=== PATIENT | male | born 1970 | race Caucasian/White ===

== ENCOUNTER 2018-10-13 12:12 | Inpatient (IN) | payer BC, MEDICAID ==
[~2018-10-13] VITALS: Ht 175.3 cm; Wt 113.4 kg
[2018-10-13] MEDS: DEXT 5%/0.45% NACL 1000ML 1,000 ML IV SCH (09:00)
[2018-10-13] MEDS ORDERED: ACETAMINOPHEN 325MG TABLET PO STA (13:21)
[2018-10-13] MEDS ORDERED: KETOROLAC 30MG/ML VIAL IV STA (13:21)
[2018-10-13] MEDS ORDERED: SODIUM CHLORIDE 0.9% 1000ML BAG (SEPSIS BOLUS) IV ONE (13:30)
[2018-10-13 14:11] LABS: HEMATOCRIT. 40.2 % (42.0-52.0); HEMOGLOBIN. 12.7 g/dL (14.0-18.0); MEAN CORPUSCULAR HEMOGLOBIN 25.8 pg (28.0-32.0); MEAN CORPUSCULAR VOLUME 81.4 fL (80.0-94.0); MEAN PLATELET VOLUME 7.4 fl (7.4-10.4); PLATELET 343 x1000/uL (130-400); RED BLOOD CELL COUNT 4.94 mill/uL (4.7-6.1); RED CELL DISTRIBUTION WIDTH 15.3 % (11.6-14.6)
[2018-10-13 14:11] LABS: CLARITY URINE CLEAR (CLEAR); COLOR URINE YELLOW (YELLOW); KETONES URINE 1+ (NEGATIVE); LEUKOCYTE ESTERASE URINE NEGATIVE (NEGATIVE); NITRITE URINE NEGATIVE (NEGATIVE); OCCULT BLOOD URINE TRACE (NEGATIVE); PROTEIN URINE NEGATIVE (NEGATIVE); UROBILINOGEN URINE 0.2 E.U./dL (0.2-1.0)
[2018-10-13 14:14] LABS: CHLORIDE 104 mEq/L (98-107)
[2018-10-13 14:37] LABS: PLATELET ESTIMATE NORMAL
[2018-10-13] MEDS ORDERED: CEFEPIME 1,000 MG in DEXTROSE 5% WATER 50 ML IV STA (14:55)
[2018-10-13] MEDS ORDERED: VANCOMYCIN 1 G PREMIX 200 ML IV STA (14:55)
[2018-10-13 16:18] LABS: INR 1.1; PROTHROMBIN TIME 10.7 sec (9.1-11.1)
[2018-10-13] MEDS ORDERED: ONDANSETRON HCL 4MG/2ML INJ IV PRN (16:45)
[2018-10-13] MEDS ORDERED: IPRATROPIUM/ALBUTEROL 0.5-3(2.5)MG/3ML NEB INH PRN (16:45)
[2018-10-13] MEDS ORDERED: ENOXAPARIN 40MG/0.4ML SYR SUBCUT SCH (16:45)
[2018-10-13] MEDS ORDERED: ACETAMINOPHEN 325MG TABLET PO PRN (16:45)
[2018-10-14 05:46] LABS: BASOPHILS % 0.2 % (0.0-2.0); EOSINOPHILS % 0.1 % (0.0-5.0); HEMATOCRIT. 35.3 % (42.0-52.0); HEMOGLOBIN. 11.2 g/dL (14.0-18.0); LYMPHOCYTES % 9.6 % (20.0-50.0); MEAN CORPUSCULAR HEMOGLOBIN 25.9 pg (28.0-32.0); MEAN CORPUSCULAR VOLUME 81.7 fL (80.0-94.0); MEAN PLATELET VOLUME 7.3 fl (7.4-10.4); MONOCYTES % 6.3 % (2.0-8.0); NEUTROPHILS % 83.8 % (40.0-76.0); PLATELET 272 x1000/uL (130-400); RED BLOOD CELL COUNT 4.32 mill/uL (4.7-6.1); RED CELL DISTRIBUTION WIDTH 15.6 % (11.6-14.6)
[2018-10-14 05:53] LABS: CHLORIDE 105 mEq/L (98-107)
[2018-10-14 06:04] LABS: LDL CHOLESTEROL 73 mg/dL (5-100)
[2018-10-14 06:05] LABS: HDL CHOLESTEROL 33 mg/dL (40-59)
[2018-10-14 08:11] LABS: *BARBITURATES SCREEN URINE NEGATIVE (NEGATIVE); CANNABINOID URINE SCREEN NEGATIVE (NEGATIVE); PHENCYCLIDINE URINE SCREEN NEGATIVE (NEGATIVE)
[2018-10-14 08:12] LABS: *AMPHETAMINES SCREEN URINE NEGATIVE (NEGATIVE); *BENZODIAZEPINES SCREEN URINE NEGATIVE (NEGATIVE); *COCAINE SCREEN URINE NEGATIVE (NEGATIVE); METHADONE URINE SCREEN NEGATIVE (NEGATIVE); OPIATES URINE SCREEN NEGATIVE (NEGATIVE)
[2018-10-14] MEDS ORDERED: METRONIDAZOLE 500 MG PREMIX 100 ML IV ONE (08:15)
[2018-10-14] MEDS ORDERED: CEFEPIME 1,000 MG in DEXTROSE 5% WATER 50 ML IV SCH (08:15)
[2018-10-14 08:55] VITALS: BP 172/111
[2018-10-14 09:26] VITALS: BP 165/101
[2018-10-14 09:28] VITALS: BP 165/101
[2018-10-14] MEDS ORDERED: VANCOMYCIN 2,000 MG in DEXT 5% WATER 500 ML IV SCH (11:00)
[2018-10-14] MEDS: CEFEPIME 1,000 MG in DEXTROSE 5% WATER 50 ML IV SCH ×2 (11:34→20:30)
[2018-10-14] MEDS: MORPHINE SULFATE 4 MG/ML CPJ (NOT FOR IM USE) IV PRN ×2 (11:37→20:25)
[2018-10-14 12:00] VITALS: BP 162/110
[2018-10-14] MEDS: METRONIDAZOLE 500 MG PREMIX 100 ML IV SCH ×2 (14:00→22:06)
[2018-10-14 16:00] VITALS: BP 163/98
[2018-10-14] MEDS ORDERED: METOPROLOL TARTRATE 25MG TABLET PO SCH (16:45)
[2018-10-14] MEDS ORDERED: DOCUSATE SODIUM 100MG CAPSULE PO PRN (16:45)
[2018-10-14] MEDS ORDERED: HYDROCODONE/ACETAMINOPHEN 5/325MG TABLET PO PRN (16:45)
[2018-10-14] MEDS ORDERED: CLONIDINE 0.1MG TABLET PO PRN (16:45)
[2018-10-14] MEDS ORDERED: DIPHENHYDRAMINE 50MG/ML VIAL IV PRN (16:45)
[2018-10-14] MEDS: ENOXAPARIN 30MG/0.3ML SYR SUBCUT SCH (18:17)
[2018-10-14 20:00] VITALS: BP 153/106
[2018-10-14] MEDS: METOPROLOL TARTRATE 25MG TABLET PO SCH (20:27)
[2018-10-14] MEDS: VANCOMYCIN 1500MG in DEXTROSE 5% WATER 250ML IV SCH (22:07)
[2018-10-15] VITALS: BP 150/103
[2018-10-15 04:00] VITALS: BP 145/99
[2018-10-15] MEDS: METRONIDAZOLE 500 MG PREMIX 100 ML IV SCH ×3 (05:57→22:37)
[2018-10-15] MEDS: DEXT 5%/0.45% NACL 1000ML 1,000 ML IV SCH ×2 (05:57→21:00)
[2018-10-15 08:00] VITALS: BP 148/95
[2018-10-15 08:02] LABS: CHLORIDE 104 mEq/L (98-107)
[2018-10-15 08:29] LABS: HEMATOCRIT. 35.7 % (42.0-52.0); HEMOGLOBIN. 11.3 g/dL (14.0-18.0); MEAN CORPUSCULAR HEMOGLOBIN 25.6 pg (28.0-32.0); PLATELET 354 x1000/uL (130-400); RED CELL DISTRIBUTION WIDTH 15.4 % (11.6-14.6)
[2018-10-15] MEDS: METOPROLOL TARTRATE 25MG TABLET PO SCH ×2 (09:36→20:41)
[2018-10-15] MEDS: CEFEPIME 1,000 MG in DEXTROSE 5% WATER 50 ML IV SCH ×2 (09:37→21:31)
[2018-10-15] MEDS: ENOXAPARIN 30MG/0.3ML SYR SUBCUT SCH ×2 (09:38→21:00)
[2018-10-15] MEDS: VANCOMYCIN 1500MG in DEXTROSE 5% WATER 250ML IV SCH (10:44)
[2018-10-15 12:00] VITALS: BP 141/95
[2018-10-15 14:19] LABS: PLATELET ESTIMATE NORMAL
[2018-10-15 16:00] VITALS: BP 151/92
[2018-10-15] MEDS ORDERED: SORBITOL 70% SOLN 30ML PO NR ×2 (16:00→20:00)
[2018-10-15 20:00] VITALS: BP 136/99
[2018-10-15] MEDS: VANCOMYCIN 1250MG in DEXTROSE 5% WATER 250ML IV SCH (20:41)
[2018-10-16 00:05] VITALS: BP 150/95
[2018-10-16 04:00] VITALS: BP 131/82
[2018-10-16] MEDS: VANCOMYCIN 1250MG in DEXTROSE 5% WATER 250ML IV SCH ×2 (04:16→11:57)
[2018-10-16] MEDS: METRONIDAZOLE 500 MG PREMIX 100 ML IV SCH ×3 (05:38→22:33)
[2018-10-16] MEDS: DEXT 5%/0.45% NACL 1000ML 1,000 ML IV SCH ×2 (05:38→17:45)
[2018-10-16 07:36] LABS: CHLORIDE 106 mEq/L (98-107)
[2018-10-16 07:38] LABS: HEMATOCRIT. 37.6 % (42.0-52.0); HEMOGLOBIN. 11.9 g/dL (14.0-18.0); MEAN CORPUSCULAR HEMOGLOBIN 25.7 pg (28.0-32.0); MEAN CORPUSCULAR VOLUME 80.8 fL (80.0-94.0); MEAN PLATELET VOLUME 7.3 fl (7.4-10.4); PLATELET 404 x1000/uL (130-400); RED BLOOD CELL COUNT 4.65 mill/uL (4.7-6.1); RED CELL DISTRIBUTION WIDTH 15.2 % (11.6-14.6)
[2018-10-16 08:00] VITALS: BP 154/60
[2018-10-16] MEDS: METOPROLOL TARTRATE 25MG TABLET PO SCH ×2 (09:52→22:33)
[2018-10-16] MEDS: ENOXAPARIN 30MG/0.3ML SYR SUBCUT SCH ×2 (09:52→22:34)
[2018-10-16] MEDS: CEFEPIME 1,000 MG in DEXTROSE 5% WATER 50 ML IV SCH ×2 (09:52→22:33)
[2018-10-16 12:00] VITALS: BP 137/86
[2018-10-16 12:04] LABS: PLATELET ESTIMATE SLIGHTLY INCREASED
[2018-10-16] MEDS ORDERED: PROPOFOL 200MG/20ML VIAL IV ONE ×3 (14:02→14:33)
[2018-10-16] MEDS ORDERED: LIDOCAINE HCL 1% 20ML VIAL (Pyxis) INJ ONE (14:05)
[2018-10-16] MEDS ORDERED: MIDAZOLAM HCL 2 MG/2 ML VIAL ONE (14:06)
[2018-10-16] MEDS ORDERED: SIMETHICONE 40 MG/0.6 ML 30ML ONE (14:09)
[2018-10-16] MEDS ORDERED: ONDANSETRON HCL 4MG/2ML INJ IV PRN ×2 (15:00→16:45)
[2018-10-16] MEDS ORDERED: HYDROMORPHONE HCL/PF 2MG/ML CPJ IV PRN (16:45)
[2018-10-16] MEDS ORDERED: VANCOMYCIN 1250MG in DEXTROSE 5% WATER 250ML IV SCH (22:00)
[2018-10-17] MEDS: DEXT 5%/0.45% NACL 1000ML 1,000 ML IV SCH ×2 (03:00→14:10)
[2018-10-17] MEDS: METRONIDAZOLE 500 MG PREMIX 100 ML IV SCH ×2 (06:52→14:10)
[2018-10-17 08:00] VITALS: BP 125/83
[2018-10-17 08:49] LABS: CHLORIDE 106 mEq/L (98-107)
[2018-10-17] MEDS: CEFEPIME 1,000 MG in DEXTROSE 5% WATER 50 ML IV SCH (09:25)
[2018-10-17] MEDS: METOPROLOL TARTRATE 25MG TABLET PO SCH (09:27)
[2018-10-17] MEDS: ENOXAPARIN 30MG/0.3ML SYR SUBCUT SCH (09:28)
[2018-10-17 11:30] LABS: HEMATOCRIT. 37.1 % (42.0-52.0); HEMOGLOBIN. 11.8 g/dL (14.0-18.0); MEAN CORPUSCULAR HEMOGLOBIN 25.9 pg (28.0-32.0); MEAN CORPUSCULAR VOLUME 81.1 fL (80.0-94.0); MEAN PLATELET VOLUME 7.2 fl (7.4-10.4); PLATELET 430 x1000/uL (130-400); RED BLOOD CELL COUNT 4.57 mill/uL (4.7-6.1); RED CELL DISTRIBUTION WIDTH 15.4 % (11.6-14.6)
[2018-10-17 12:00] VITALS: BP 131/89
[2018-10-17 12:52] LABS: PLATELET ESTIMATE INCREASED
[2018-10-17 15:29] VITALS: BP 18/131
[2018-10-18 04:13] LABS: OVA & PARASITE EXAM Final report (.)
== END 2018-10-17 16:45 | disposition home or self-care (01) | DRG 871 ==
LOC: ER 12:12 → 7WST 15:56 → EDBEDREQSVC 15:58 → EDBEDREQ 15:58 → ENRESERV 10-14 08:01
PROVIDERS: ADMIT Internal Medicine; ATTEND Internal Medicine
PROC: 0DBL8ZZ Excision of Transverse Colon, Via Natural or Artificial Opening Endoscopic (ICD-10-PCS; principal; 2018-10-16)
PROC: 0DBH8ZX Excision of Cecum, Via Natural or Artificial Opening Endoscopic, Diagnostic (ICD-10-PCS; 2018-10-16)
DX: A41.9 Sepsis, unspecified organism (principal); J18.9 Pneumonia, unspecified organism; C18.9 Malignant neoplasm of colon, unspecified; D68.59 Other primary thrombophilia; C18.0 Malignant neoplasm of cecum; C79.9 Secondary malignant neoplasm of unspecified site; J44.0 Chronic obstructive pulmonary disease with (acute) lower respiratory infection; Z68.41 Body mass index [BMI] 40.0-44.9, adult; D64.9 Anemia, unspecified; E78.5 Hyperlipidemia, unspecified; K52.9 Noninfective gastroenteritis and colitis, unspecified; I10 Essential (primary) hypertension; E66.9 Obesity, unspecified; F10.10 Alcohol abuse, uncomplicated; F17.210 Nicotine dependence, cigarettes, uncomplicated; K57.30 Diverticulosis of large intestine without perforation or abscess without bleeding; R73.9 Hyperglycemia, unspecified; Z72.89 Other problems related to lifestyle
CPT/HCPCS: 36415; 71045; 71250; 74176; 80048; 80061; 80202; 80305; 82378; 83036; 83605; 84145; 84439; 84443; 84484; 85007; 85027; 86304; 87015; 87045; 87177; 87209; 87427; 87449; 87804; 88305; 93005; 93306; 93970; 96365; 96375; 99291; J0692; J1650; J1885; J2250; J2270; J2704; J3370; J3490; J7030; J7060

== ENCOUNTER 2018-11-20 05:38 | Inpatient (IN) | payer BC ==
[~2018-11-20] VITALS: Ht 175.3 cm; Wt 113.4 kg
[2018-11-20] MEDS ORDERED: LACTATED RINGERS 1,000 ML IV SCH (06:00)
[2018-11-20 06:35] LABS: INR 1.1; PARTIAL THROMBOPLASTIN TIME 27.8 sec (23.4-31.0); PROTHROMBIN TIME 11.2 sec (9.6-11.0)
[2018-11-20] MEDS ORDERED: INDOCYANINE GREEN 25 MG VIAL IV ONE (06:40)
[2018-11-20] MEDS ORDERED: SKIN ADHESIVE 0.7 GM EA TOP ONE ×2 (06:40→10:27)
[2018-11-20] MEDS ORDERED: LEVOFLOXACIN 500MG PREMIX 100 ML IV ONE (06:40)
[2018-11-20] MEDS ORDERED: BUPIVACAINE HCL/PF 0.5% (5MG/ML) 10ML ONE (06:41)
[2018-11-20] MEDS ORDERED: METRONIDAZOLE 500 MG PREMIX 100 ML IV ONE (06:41)
[2018-11-20] MEDS ORDERED: BUPIVACAINE HCL 0.5% (5MG/ML) 50ML ONE ×2 (06:42→10:05)
[2018-11-20] MEDS ORDERED: ONDANSETRON HCL 4MG/2ML INJ IV PRN ×2 (07:15→10:45)
[2018-11-20] MEDS ORDERED: METO25TA6 PO (09:00)
[2018-11-20] MEDS ORDERED: SODIUM CHLORIDE 0.9% 1,000 ML IV ONE (10:39)
[2018-11-20] MEDS ORDERED: MORPHINE SULFATE 4 MG/ML CPJ (NOT FOR IM USE) IV PRN (10:45)
[2018-11-20] MEDS ORDERED: MEPERIDINE HCL/PF 25MG/ML CPJ IV PRN ×2 (10:45)
[2018-11-20] MEDS ORDERED: HYDROMORPHONE HCL/PF 2MG/ML CPJ IV PRN (10:45)
[2018-11-20 12:00] VITALS: BP 122/73
[2018-11-20 16:00] VITALS: BP 137/84
[2018-11-20] MEDS: DEXT 5%/0.45% NACL KCL 20MEQ/L 1,000 ML IV SCH (18:32)
[2018-11-20 20:34] VITALS: BP 132/90
[2018-11-21] VITALS (7 sets, daily range): BP systolic 132–169; BP diastolic 88–104
[2018-11-21] MEDS: DEXT 5%/0.45% NACL KCL 20MEQ/L 1,000 ML IV SCH ×2 (01:30→12:25)
[2018-11-21 06:13] LABS: BASOPHILS % 0.3 % (0.0-2.0); HEMATOCRIT. 32.3 % (42.0-52.0); HEMOGLOBIN. 10.5 g/dL (14.0-18.0); LYMPHOCYTES % 12.5 % (20.0-50.0); MEAN CORPUSCULAR VOLUME 80.2 fL (80.0-94.0); MEAN PLATELET VOLUME 7.5 fl (7.4-10.4); MONOCYTES % 9.7 % (2.0-8.0); NEUTROPHILS % 77.5 % (40.0-76.0); PLATELET 318 x1000/uL (130-400); RED BLOOD CELL COUNT 4.02 mill/uL (4.7-6.1); RED CELL DISTRIBUTION WIDTH 16.2 % (11.6-14.6)
[2018-11-21 06:43] LABS: CHLORIDE 108 mEq/L (98-107)
[2018-11-21] MEDS: MORPHINE SULFATE 4 MG/ML CPJ (NOT FOR IM USE) IV PRN (09:53)
[2018-11-21] MEDS: ACETAMINOPHEN 650MG SUPP PR PRN ×2 (10:05→22:46)
[2018-11-21] MEDS ORDERED: IPRATROPIUM/ALBUTEROL 0.5-3(2.5)MG/3ML NEB HHN PRN (14:00)
[2018-11-21] MEDS ORDERED: GUAIFENESIN 200MG/10ML SUGAR FREE UDC PO PRN (15:15)
[2018-11-21] MEDS: LEVOFLOXACIN 500MG PREMIX 100 ML IV SCH (17:09)
[2018-11-21] MEDS: FLUTICASONE PROPIONATE 50MCG/SPRAY BOTTLE BOTHNSTRLS SCH (20:24)
[2018-11-22] VITALS: BP 149/98
[2018-11-22 04:00] VITALS: BP 138/93
[2018-11-22 06:41] LABS: CHLORIDE 106 mEq/L (98-107)
[2018-11-22 06:56] LABS: HEMATOCRIT 34.8 % (42.0-52.0); HEMOGLOBIN 11.1 g/dL (14.0-18.0); MEAN CORPUSCULAR HEMOGLOBIN 25.6 pg (28.0-32.0); MEAN CORPUSCULAR VOLUME 80.2 fL (80.0-94.0); PLATELET 343 x1000/uL (130-400); RED BLOOD CELL COUNT 4.34 mill/uL (4.7-6.1); RED CELL DISTRIBUTION WIDTH 16.4 % (11.6-14.6)
[2018-11-22 08:00] VITALS: BP 125/82
[2018-11-22] MEDS: ACETAMINOPHEN 650MG SUPP PR PRN ×2 (08:05→19:40)
[2018-11-22] MEDS: FLUTICASONE PROPIONATE 50MCG/SPRAY BOTTLE BOTHNSTRLS SCH ×2 (08:07→20:33)
[2018-11-22 12:00] VITALS: BP 128/86
[2018-11-22 16:00] VITALS: BP 142/65
[2018-11-22] MEDS: LEVOFLOXACIN 500MG PREMIX 100 ML IV SCH (17:18)
[2018-11-22 20:00] VITALS: BP 130/87
[2018-11-22] MEDS: MORPHINE SULFATE 4 MG/ML CPJ (NOT FOR IM USE) IV PRN (22:41)
[2018-11-23] VITALS: BP 128/87
[2018-11-23 04:37] VITALS: BP 140/91
[2018-11-23 06:36] LABS: HEMATOCRIT 36.6 % (42.0-52.0); HEMOGLOBIN 11.9 g/dL (14.0-18.0); MEAN CORPUSCULAR HEMOGLOBIN 26.1 pg (28.0-32.0); PLATELET 392 x1000/uL (130-400); RED BLOOD CELL COUNT 4.58 mill/uL (4.7-6.1); RED CELL DISTRIBUTION WIDTH 16.6 % (11.6-14.6)
[2018-11-23 06:48] LABS: CHLORIDE 103 mEq/L (98-107)
[2018-11-23 08:00] VITALS: BP 135/79
[2018-11-23] MEDS: FLUTICASONE PROPIONATE 50MCG/SPRAY BOTTLE BOTHNSTRLS SCH ×2 (08:15→20:33)
[2018-11-23 12:00] VITALS: BP 135/78
[2018-11-23 16:00] VITALS: BP 132/84
[2018-11-23] MEDS: LEVOFLOXACIN 500MG PREMIX 100 ML IV SCH (16:52)
[2018-11-23 20:00] VITALS: BP 129/87
[2018-11-24] VITALS: BP 132/88
[2018-11-24] MEDS: MORPHINE SULFATE 4 MG/ML CPJ (NOT FOR IM USE) IV PRN (03:55)
[2018-11-24 04:00] VITALS: BP 116/81
[2018-11-24 06:49] LABS: HEMATOCRIT 33.9 % (42.0-52.0); HEMOGLOBIN 10.9 g/dL (14.0-18.0); MEAN CORPUSCULAR HEMOGLOBIN 25.8 pg (28.0-32.0); MEAN CORPUSCULAR VOLUME 79.9 fL (80.0-94.0); PLATELET 373 x1000/uL (130-400); RED BLOOD CELL COUNT 4.25 mill/uL (4.7-6.1)
[2018-11-24 07:24] LABS: CHLORIDE 105 mEq/L (98-107)
[2018-11-24 08:00] VITALS: BP 113/81
[2018-11-24] MEDS: FLUTICASONE PROPIONATE 50MCG/SPRAY BOTTLE BOTHNSTRLS SCH (09:22)
[2018-11-24 12:13] VITALS: BP 144/92
[2018-11-24 12:21] VITALS: BP 144/92
== END 2018-11-24 13:30 | disposition home or self-care (01) | DRG 330 ==
LOC: OR 05:38 → 6EST 05:39 → 6WST 11-21 04:47 → 5WST 11-21 19:53
PROVIDERS: ADMIT Surgery; ATTEND Surgery
PROC: 8E0W4CZ Robotic Assisted Procedure of Trunk Region, Percutaneous Endoscopic Approach (ICD-10-PCS; principal; 2018-11-20)
PROC: 0DTF4ZZ Resection of Right Large Intestine, Percutaneous Endoscopic Approach (ICD-10-PCS; 2018-11-20)
DX: C18.0 Malignant neoplasm of cecum (principal); C78.00 Secondary malignant neoplasm of unspecified lung; I47.1 Supraventricular tachycardia; K56.7 Ileus, unspecified; D72.829 Elevated white blood cell count, unspecified; I10 Essential (primary) hypertension; T14.8XXA Other injury of unspecified body region, initial encounter; E66.01 Morbid (severe) obesity due to excess calories; D64.9 Anemia, unspecified; K57.30 Diverticulosis of large intestine without perforation or abscess without bleeding; Z79.899 Other long term (current) drug therapy; W34.09XA Accidental discharge from other specified firearms, initial encounter; Y93.89 Activity, other specified; Y92.89 Other specified places as the place of occurrence of the external cause; Y99.8 Other external cause status; Z68.36 Body mass index [BMI] 36.0-36.9, adult; Z56.0 Unemployment, unspecified
CPT/HCPCS: 36415; 71045; 80048; 82962; 85027; 86850; 86900; 88309; 88329; 93005; J1170; J1956; J2270; J3490; Q9957

== ENCOUNTER → 2019-01-16 | Outpatient (CLI) | payer BC ==
[~2019-01-16] VITALS: Ht 175.3 cm; Wt 112.0 kg
[2019-01-16] VITALS (15 sets, daily range): BP systolic 153–209; BP diastolic 97–117
[~2019-01-16] MED LIST: CEFAZOLIN 1000MG PREMIX 50 ML IV ONE; FENTANYL CITRATE/PF 50MCG/ML 2ML VIAL IV ONE; FENTANYL CITRATE/PF 50MCG/ML 2ML VIAL ONE; LIDOCAINE HCL 1% 20ML VIAL (Pyxis) INJ ONE; LIDOCAINE HCL/EPINEPHRINE 1%-EPI 1:100,000 20 ML VIAL ONE; METO25TA6 PO; MIDAZOLAM HCL 2 MG/2 ML VIAL IV ONE; MIDAZOLAM HCL 2 MG/2 ML VIAL ONE; MIDAZOLAM HCL 5 MG/ML VIAL IV ONE; SODIUM BICARBONATE 4% (2.4MEQ) 5ML VIAL IV ONE
== END | disposition home or self-care (01) ==
LOC: RAD 08:45
PROVIDERS: ATTEND Internal Medicine Hematology & Oncology
DX: C18.2 Malignant neoplasm of ascending colon (principal)
CPT/HCPCS: 36561; 76937; 77001; C1751; J2250; J3010; J3490; J0690; J7050

== ENCOUNTER → 2020-07-14 | Outpatient (CLI) | payer BC ==
[~2020-07-14] MED LIST changes: +BARIUM SULFATE 450ML ORAL SUSP ONE; -CEFAZOLIN 1000MG PREMIX 50 ML IV ONE; -FENTANYL CITRATE/PF 50MCG/ML 2ML VIAL IV ONE; -FENTANYL CITRATE/PF 50MCG/ML 2ML VIAL ONE; +IOHEXOL-300 100 ML BOTTLE ONE; -LIDOCAINE HCL 1% 20ML VIAL (Pyxis) INJ ONE; -LIDOCAINE HCL/EPINEPHRINE 1%-EPI 1:100,000 20 ML VIAL ONE; -MIDAZOLAM HCL 2 MG/2 ML VIAL IV ONE; -MIDAZOLAM HCL 2 MG/2 ML VIAL ONE; -MIDAZOLAM HCL 5 MG/ML VIAL IV ONE; -SODIUM BICARBONATE 4% (2.4MEQ) 5ML VIAL IV ONE
== END | disposition home or self-care (01) ==
LOC: CT 07:33
PROVIDERS: ATTEND Internal Medicine Hematology & Oncology
DX: C18.2 Malignant neoplasm of ascending colon (principal); I25.10 Atherosclerotic heart disease of native coronary artery without angina pectoris; J98.4 Other disorders of lung; K57.30 Diverticulosis of large intestine without perforation or abscess without bleeding; R59.0 Localized enlarged lymph nodes
CPT/HCPCS: 71260; 74177; Q9967

== ENCOUNTER 2020-10-28 12:49 | Emergency (ER) | payer BC ==
[~2020-10-28] VITALS: Ht 172.7 cm; Wt 109.0 kg
[~2020-10-28 12:49] MED LIST changes: -BARIUM SULFATE 450ML ORAL SUSP ONE; -IOHEXOL-300 100 ML BOTTLE ONE
[2020-10-28 13:18] VITALS: BP 167/104
== END 2020-10-28 15:56 | disposition left against medical advice (07) ==
LOC: ER 12:49
DX: M25.571 Pain in right ankle and joints of right foot (principal); Z53.21 Procedure and treatment not carried out due to patient leaving prior to being seen by health care provider

== ENCOUNTER 2021-09-07 06:56 | Inpatient (IN) | payer BC ==
[~2021-09-07] VITALS: Ht 172.7 cm; Wt 87.5 kg
[~2021-09-07 06:56] MED LIST changes: +CAPE500T15 PO
[2021-09-07] MEDS ORDERED: KETOROLAC 30MG/ML VIAL IV STA (07:32)
[2021-09-07] MEDS ORDERED: SODIUM CHLORIDE 0.9% 1,000 ML IV ONE (07:45)
[2021-09-07 08:42] LABS: BASOPHILS % 0.6 % (0.0-2.0); EOSINOPHILS % 0.3 % (0.0-5.0); HEMATOCRIT. 30.2 % (42.0-52.0); HEMOGLOBIN. 9.4 g/dL (14.0-18.0); LYMPHOCYTES % 21.4 % (20.0-50.0); MEAN CORPUSCULAR HEMOGLOBIN 21.9 pg (28.0-32.0); MEAN CORPUSCULAR VOLUME 70.6 fL (80.0-94.0); MEAN PLATELET VOLUME 6.1 fl (7.4-10.4); MONOCYTES % 8.6 % (2.0-8.0); NEUTROPHILS % 69.1 % (40.0-76.0); PLATELET 580 x1000/uL (130-400); RED BLOOD CELL COUNT 4.28 mill/uL (4.7-6.1); RED CELL DISTRIBUTION WIDTH 22.3 % (11.6-14.6)
[2021-09-07 08:49] LABS: CHLORIDE 105 mEq/L (98-107)
[2021-09-07 09:05] LABS: PLATELET ESTIMATE INCREASED
[2021-09-07] MEDS ORDERED: MORPHINE SULFATE 2 MG/ML CPJ (NOT FOR IM USE) IV NR (17:03)
[2021-09-07] MEDS ORDERED: ACETAMINOPHEN 650MG/20.3ML UDC GT PRN (17:30)
[2021-09-07] MEDS ORDERED: MAGNESIUM/ALUMINUM HYDROXIDE/SIMETHICONE 30ML UDC PO PRN (17:30)
[2021-09-07] MEDS ORDERED: CLONIDINE 0.1MG TABLET PO PRN (17:30)
[2021-09-07] MEDS ORDERED: ONDANSETRON HCL 4MG/2ML INJ IV PRN (17:30)
[2021-09-07] MEDS ORDERED: DEXT 5%/0.45% NACL KCL 10MEQ/L 1,000 ML IV SCH (19:30)
[2021-09-07] MEDS ORDERED: ENOXAPARIN 40MG/0.4ML SYR SUBCUT SCH (21:00)
[2021-09-07 21:50] VITALS: BP 145/108
[2021-09-08] MEDS: HYDROMORPHONE HCL/PF 2MG/ML CPJ IV PRN ×3 (02:08→11:31)
[2021-09-08 07:53] LABS: BASOPHILS % 0.5 % (0.0-2.0); EOSINOPHILS % 2.9 % (0.0-5.0); HEMATOCRIT. 27.6 % (42.0-52.0); HEMOGLOBIN. 8.6 g/dL (14.0-18.0); LYMPHOCYTES % 31.5 % (20.0-50.0); MEAN CORPUSCULAR VOLUME 70.6 fL (80.0-94.0); MEAN PLATELET VOLUME 6.6 fl (7.4-10.4); MONOCYTES % 14.8 % (2.0-8.0); NEUTROPHILS % 50.3 % (40.0-76.0); PLATELET 521 x1000/uL (130-400); RED BLOOD CELL COUNT 3.91 mill/uL (4.7-6.1); RED CELL DISTRIBUTION WIDTH 22.4 % (11.6-14.6)
[2021-09-08 08:00] VITALS: BP 143/97
[2021-09-08] MEDS ORDERED: DEXT 5%/0.45% NACL KCL 10MEQ/L 1,000 ML IV SCH (10:00)
[2021-09-08 10:20] LABS: CHLORIDE 103 mEq/L (98-107)
[2021-09-08 11:44] VITALS: BP 143/97
== END 2021-09-08 13:05 | disposition home or self-care (01) | DRG 374 ==
LOC: ER 06:56 → 6EST 14:13 → ENRESERV 17:23 → 6EST 21:16
PROVIDERS: ADMIT Hospitalist; ATTEND Hospitalist
DX: C18.9 Malignant neoplasm of colon, unspecified (principal); E43 Unspecified severe protein-calorie malnutrition; C80.0 Disseminated malignant neoplasm, unspecified; Z20.822 Contact with and (suspected) exposure to COVID-19; G89.4 Chronic pain syndrome; I10 Essential (primary) hypertension; Z68.29 Body mass index [BMI] 29.0-29.9, adult
CPT/HCPCS: 36415; 71045; 74176; 80053; 84484; 85025; 87426; 99285; J1170; J1650; J1885; J2270; J7030

== ENCOUNTER 2021-10-27 16:10 | Inpatient (IN) | payer BC ==
[~2021-10-27] VITALS: Ht 175.3 cm; Wt 74.8 kg
[2021-10-27] MEDS ORDERED: SODIUM CHLORIDE 0.9% 1000ML BAG (SEPSIS BOLUS) IV ONE (17:30)
[2021-10-27 17:38] LABS: HEMATOCRIT. 29.8 % (42.0-52.0); HEMOGLOBIN. 9.1 g/dL (14.0-18.0); MEAN CORPUSCULAR HEMOGLOBIN 21.2 pg (28.0-32.0); MEAN CORPUSCULAR VOLUME 69.7 fL (80.0-94.0); PLATELET 625 x1000/uL (130-400); RED BLOOD CELL COUNT 4.28 mill/uL (4.7-6.1); RED CELL DISTRIBUTION WIDTH 22.5 % (11.6-14.6)
[2021-10-27] MEDS ORDERED: CEFEPIME 1,000 MG in DEXTROSE 5% WATER 50 ML IV SCH (17:45)
[2021-10-27] MEDS ORDERED: VANCOMYCIN 1G PREMIX 200 ML IV SCH (17:45)
[2021-10-27] MEDS ORDERED: MORPHINE SULFATE 4 MG/ML CPJ (NOT FOR IM USE) IV ONE (17:45)
[2021-10-27 17:46] LABS: CHLORIDE 94 mEq/L (98-107)
[2021-10-27 17:48] LABS: INR 1.3; PROTHROMBIN TIME 13.9 sec (9.6-11.0)
[2021-10-27] MEDS ORDERED: CEFEPIME 1,000 MG in DEXTROSE 5% WATER 50 ML IV NR (18:00)
[2021-10-27 18:01] LABS: PLATELET ESTIMATE INCREASED
[2021-10-27] MEDS ORDERED: KETOROLAC 15MG/ML VIAL IV ONE (18:15)
[2021-10-27] MEDS ORDERED: NOREPINEPHRINE 8MG/250ML PMX 250 ML IV ONE (21:00)
[2021-10-27] MEDS ORDERED: IOHEXOL-350 100 ML BOTTLE ONE (21:38)
[2021-10-27] MEDS ORDERED: SODIUM CHLORIDE 0.9% 1,000 ML IV ONE (23:15)
[2021-10-27] MEDS ORDERED: METRONIDAZOLE 500 MG PREMIX 100 ML IV ONE (23:30)
[2021-10-28] VITALS (55 sets, daily range): BP systolic 90–159; BP diastolic 55–125
[2021-10-28] MEDS ORDERED: NOREPINEPHRINE 8MG/250ML PMX 250 ML IV NR (06:00)
[2021-10-28] MEDS ORDERED: MORPHINE SULFATE 2 MG/ML CPJ (NOT FOR IM USE) IV NR (08:27)
[2021-10-28] MEDS ORDERED: NALOXONE HCL 0.4MG/ML VIAL IV PRN (08:30)
[2021-10-28] MEDS: NOREPINEPHRINE 8 MG in DEXTROSE 5% WATER 250 ML IV PRN ×2 (09:24→12:29)
[2021-10-28] MEDS ORDERED: POTASSIUM CHLORIDE INJ 40 MEQ in DEXT 5% WATER 250 ML IV ONE (10:00)
[2021-10-28] MEDS ORDERED: HYDR2TAB4 MT (11:06)
[2021-10-28] MEDS: ONDANSETRON HCL 4MG/2ML INJ IV PRN (11:55)
[2021-10-28] MEDS: DEXT 5%/0.45% NACL KCL 20MEQ/L 1,000 ML IV SCH ×2 (12:27→22:17)
[2021-10-28] MEDS: MORPHINE SULFATE 4 MG/ML CPJ (NOT FOR IM USE) IV PRN ×2 (12:27→12:52)
[2021-10-28] MEDS: KCL 20MEQ/100ML X 2 FOR TOTAL KCL 40MEQ/200ML IV SCH ×2 (12:28→14:12)
[2021-10-28] MEDS: PIPERACILLIN/TAZOBACTAM 3.375 G in DEXTROSE 5% WATER 50 ML IV SCH ×2 (14:12→22:17)
[2021-10-28 15:54] LABS: CLARITY URINE CLOUDY (CLEAR); COLOR URINE YELLOW (YELLOW); KETONES URINE NEGATIVE (NEGATIVE); LEUKOCYTE ESTERASE URINE NEGATIVE (NEGATIVE); NITRITE URINE NEGATIVE (NEGATIVE); OCCULT BLOOD URINE 1+ (NEGATIVE); PH URINE 5.5 (4.5-8.0); PROTEIN URINE 2+ (NEGATIVE); SPECIFIC GRAVITY URINE 1.043 (1.005-1.030); UROBILINOGEN URINE 0.2 E.U./dL (0.2-1.0)
[2021-10-28] MEDS: HYDROMORPHONE HCL/PF 2MG/ML CPJ IV PRN ×2 (16:27→20:28)
[2021-10-28 18:44] LABS: BASOPHILS % 0.2 % (0.0-2.0); HEMATOCRIT. 27.5 % (42.0-52.0); HEMOGLOBIN. 8.6 g/dL (14.0-18.0); LYMPHOCYTES % 14.9 % (20.0-50.0); MEAN CORPUSCULAR HEMOGLOBIN 21.5 pg (28.0-32.0); MEAN CORPUSCULAR VOLUME 68.8 fL (80.0-94.0); MEAN PLATELET VOLUME 6.4 fl (7.4-10.4); MONOCYTES % 4.9 % (2.0-8.0); PLATELET 360 x1000/uL (130-400); RED CELL DISTRIBUTION WIDTH 22.5 % (11.6-14.6)
[2021-10-28 18:52] LABS: CHLORIDE 104 mEq/L (98-107)
[2021-10-28 19:25] LABS: PLATELET ESTIMATE NORMAL
[2021-10-28] MEDS: PHENYLEPHRINE 50 MG in DEXT 5% WATER 245 ML IV PRN (21:13)
[2021-10-29] VITALS (94 sets, daily range): BP systolic 66–144; BP diastolic 32–105
[2021-10-29] MEDS: HYDROMORPHONE HCL/PF 2MG/ML CPJ IV PRN ×6 (00:40→22:08)
[2021-10-29] MEDS: ONDANSETRON HCL 4MG/2ML INJ IV PRN ×2 (04:57→22:09)
[2021-10-29] MEDS: PIPERACILLIN/TAZOBACTAM 3.375 G in DEXTROSE 5% WATER 50 ML IV SCH ×3 (05:02→22:07)
[2021-10-29] MEDS: DEXT 5%/0.45% NACL KCL 20MEQ/L 1,000 ML IV SCH (05:03)
[2021-10-29] MEDS: PHENYLEPHRINE 50 MG in DEXT 5% WATER 245 ML IV PRN ×2 (06:37→22:16)
[2021-10-29 06:41] LABS: BASOPHILS % 0.3 % (0.0-2.0); HEMATOCRIT. 29.7 % (42.0-52.0); HEMOGLOBIN. 9.1 g/dL (14.0-18.0); LYMPHOCYTES % 13.9 % (20.0-50.0); MEAN CORPUSCULAR HEMOGLOBIN 21.2 pg (28.0-32.0); MEAN CORPUSCULAR VOLUME 69.2 fL (80.0-94.0); MEAN PLATELET VOLUME 8.3 fl (7.4-10.4); MONOCYTES % 3.6 % (2.0-8.0); NEUTROPHILS % 82.2 % (40.0-76.0); PLATELET 307 x1000/uL (130-400); RED BLOOD CELL COUNT 4.29 mill/uL (4.7-6.1); RED CELL DISTRIBUTION WIDTH 22.7 % (11.6-14.6)
[2021-10-29] MEDS: DEXT 5%/0.9% NACL 1,000 ML IV SCH ×2 (12:12→22:07)
[2021-10-29] MEDS ORDERED: DIGOXIN 500MCG/2ML AMP IV NR ×2 (13:00→19:15)
[2021-10-30] VITALS (76 sets, daily range): BP systolic 90–136; BP diastolic 60–95
[2021-10-30] MEDS: HYDROMORPHONE HCL/PF 2MG/ML CPJ IV PRN ×5 (03:26→20:54)
[2021-10-30] MEDS: PIPERACILLIN/TAZOBACTAM 3.375 G in DEXTROSE 5% WATER 50 ML IV SCH ×3 (05:26→20:54)
[2021-10-30 05:37] LABS: HEMATOCRIT. 23.5 % (42.0-52.0); HEMOGLOBIN. 7.2 g/dL (14.0-18.0); MEAN CORPUSCULAR HEMOGLOBIN 21.4 pg (28.0-32.0); MEAN CORPUSCULAR VOLUME 69.5 fL (80.0-94.0); MEAN PLATELET VOLUME 7.1 fl (7.4-10.4); PLATELET 245 x1000/uL (130-400); RED BLOOD CELL COUNT 3.38 mill/uL (4.7-6.1); RED CELL DISTRIBUTION WIDTH 22.5 % (11.6-14.6)
[2021-10-30 05:58] LABS: CHLORIDE 110 mEq/L (98-107)
[2021-10-30 08:24] LABS: PLATELET ESTIMATE NORMAL
[2021-10-30] MEDS: DEXT 5%/0.9% NACL 1,000 ML IV SCH ×2 (08:25→19:34)
[2021-10-30 20:40] LABS: HEMATOCRIT 25.7 % (42.0-52.0); HEMOGLOBIN 7.8 g/dL (14.0-18.0)
[2021-10-31] VITALS (11 sets, daily range): BP systolic 97–139; BP diastolic 58–106
[2021-10-31] MEDS: HYDROMORPHONE HCL/PF 2MG/ML CPJ IV PRN ×6 (01:14→22:05)
[2021-10-31] MEDS: DEXT 5%/0.9% NACL 1,000 ML IV SCH ×2 (05:46→14:22)
[2021-10-31] MEDS: PIPERACILLIN/TAZOBACTAM 3.375 G in DEXTROSE 5% WATER 50 ML IV SCH ×3 (06:45→21:54)
[2021-10-31 07:00] LABS: HEMATOCRIT. 24.8 % (42.0-52.0); HEMOGLOBIN. 7.5 g/dL (14.0-18.0); MEAN CORPUSCULAR VOLUME 72.6 fL (80.0-94.0); PLATELET 257 x1000/uL (130-400); RED BLOOD CELL COUNT 3.41 mill/uL (4.7-6.1); RED CELL DISTRIBUTION WIDTH 24.2 % (11.6-14.6)
[2021-10-31 07:31] LABS: CHLORIDE 112 mEq/L (98-107)
[2021-10-31] MEDS: FOLIC ACID 1MG TABLET PO SCH (09:45)
[2021-10-31] MEDS: THIAMINE HCL 100MG TABLET PO SCH (09:45)
[2021-10-31] MEDS: MULTIVITAMINS,THER W-MINERALS TABLET PO SCH (09:45)
[2021-10-31] MEDS ORDERED: POTASSIUM CHLORIDE 20MEQ TABLET SR PO NR (11:00)
[2021-10-31] MEDS: ONDANSETRON HCL 4MG/2ML INJ IV PRN (14:23)
[2021-10-31 15:09] LABS: PLATELET ESTIMATE NORMAL
[2021-11-01] VITALS (12 sets, daily range): BP systolic 99–144; BP diastolic 60–97
[2021-11-01] MEDS: DEXT 5%/0.9% NACL 1,000 ML IV SCH ×2 (00:41→10:32)
[2021-11-01] MEDS: HYDROCODONE/ACETAMINOPHEN 10/325MG TABLET PO PRN ×3 (00:55→20:00)
[2021-11-01] MEDS: HYDROMORPHONE HCL/PF 2MG/ML CPJ IV PRN ×4 (03:11→22:01)
[2021-11-01] MEDS: PIPERACILLIN/TAZOBACTAM 3.375 G in DEXTROSE 5% WATER 50 ML IV SCH ×3 (05:50→22:01)
[2021-11-01 07:26] LABS: BASOPHILS % 0.2 % (0.0-2.0); EOSINOPHILS % 0.2 % (0.0-5.0); HEMATOCRIT. 24.3 % (42.0-52.0); HEMOGLOBIN. 7.5 g/dL (14.0-18.0); LYMPHOCYTES % 12.2 % (20.0-50.0); MEAN CORPUSCULAR HEMOGLOBIN 22.3 pg (28.0-32.0); MEAN CORPUSCULAR VOLUME 71.6 fL (80.0-94.0); MEAN PLATELET VOLUME 6.7 fl (7.4-10.4); MONOCYTES % 7.4 % (2.0-8.0); PLATELET 263 x1000/uL (130-400); RED BLOOD CELL COUNT 3.39 mill/uL (4.7-6.1); RED CELL DISTRIBUTION WIDTH 24.2 % (11.6-14.6)
[2021-11-01 07:33] LABS: CHLORIDE 116 mEq/L (98-107)
[2021-11-01 07:48] LABS: PHOSPHORUS 1.7 mg/dL (2.5-4.9)
[2021-11-01] MEDS: FOLIC ACID 1MG TABLET PO SCH (08:25)
[2021-11-01] MEDS: MULTIVITAMINS,THER W-MINERALS TABLET PO SCH (08:25)
[2021-11-01] MEDS: THIAMINE HCL 100MG TABLET PO SCH (08:26)
[2021-11-01] MEDS ORDERED: POTASSIUM CHLORIDE INJ 40 MEQ in DEXT 5% WATER 250 ML IV SCH (10:00)
[2021-11-01] MEDS: BLOOD SUGAR DIAGNOSTIC STRIP TEST SCH (18:34)
[2021-11-01] MEDS: DEXT 10% WATER 1,000 ML IV SCH (18:34)
[2021-11-02] VITALS (19 sets, daily range): BP systolic 102–127; BP diastolic 66–91
[2021-11-02] MEDS: BLOOD SUGAR DIAGNOSTIC STRIP TEST SCH ×4 (00:36→18:07)
[2021-11-02] MEDS: HYDROMORPHONE HCL/PF 2MG/ML CPJ IV PRN ×2 (04:41→15:29)
[2021-11-02] MEDS: PIPERACILLIN/TAZOBACTAM 3.375 G in DEXTROSE 5% WATER 50 ML IV SCH ×3 (05:17→22:48)
[2021-11-02 06:59] LABS: HEMATOCRIT. 22.7 % (42.0-52.0); HEMOGLOBIN. 7.1 g/dL (14.0-18.0); MEAN CORPUSCULAR HEMOGLOBIN 22.4 pg (28.0-32.0); MEAN CORPUSCULAR VOLUME 71.9 fL (80.0-94.0); MEAN PLATELET VOLUME 6.7 fl (7.4-10.4); PLATELET 339 x1000/uL (130-400); RED BLOOD CELL COUNT 3.15 mill/uL (4.7-6.1); RED CELL DISTRIBUTION WIDTH 24.9 % (11.6-14.6)
[2021-11-02 07:15] LABS: CHLORIDE 113 mEq/L (98-107)
[2021-11-02 07:22] LABS: PHOSPHORUS 1.7 mg/dL (2.5-4.9)
[2021-11-02] MEDS: MULTIVITAMINS,THER W-MINERALS TABLET PO SCH (09:58)
[2021-11-02] MEDS: THIAMINE HCL 100MG TABLET PO SCH (09:58)
[2021-11-02] MEDS: FOLIC ACID 1MG TABLET PO SCH (09:58)
[2021-11-02] MEDS ORDERED: MAGNESIUM 4 G PREMIX 100 ML IV ONE (10:00)
[2021-11-02] MEDS ORDERED: POTASSIUM PHOS,M-BASIC-D-BASIC 30 MMOL in SODIUM CHLORIDE 0.9% 500 ML IV ONE (10:00)
[2021-11-02] MEDS ORDERED: KCL 20MEQ/100ML PREMIX 100 ML IV SCH (10:00)
[2021-11-02] MEDS: ACETAMINOPHEN 325MG TABLET PO PRN (10:13)
[2021-11-02] MEDS: HYDROCODONE/ACETAMINOPHEN 10/325MG TABLET PO PRN ×2 (13:37→22:38)
[2021-11-02 13:44] LABS: ATYPICAL LYMPHOCYTES 3; PLATELET ESTIMATE NORMAL
[2021-11-02] MEDS: DEXT 10% WATER 1,000 ML IV SCH (14:00)
[2021-11-02] MEDS ORDERED: POTASSIUM CHLORIDE INJ 40 MEQ in DEXT 5% WATER 250 ML IV NR (17:30)
[2021-11-02 20:31] LABS: HEMATOCRIT 27.7 % (42.0-52.0); HEMOGLOBIN 8.7 g/dL (14.0-18.0)
[2021-11-02] MEDS ORDERED: TOTAL PARENTERAL NUTRITION IV SCH (21:00)
[2021-11-02] MEDS: FAT EMULSIONS 250 ML IV SCH (22:14)
[2021-11-03] VITALS (15 sets, daily range): BP systolic 101–125; BP diastolic 61–79
[2021-11-03] MEDS: BLOOD SUGAR DIAGNOSTIC STRIP TEST SCH ×4 (00:15→18:36)
[2021-11-03] MEDS: FAT EMULSIONS 250 ML IV SCH (03:17)
[2021-11-03] MEDS: HYDROMORPHONE HCL/PF 2MG/ML CPJ IV PRN ×2 (03:18→10:24)
[2021-11-03] MEDS: PIPERACILLIN/TAZOBACTAM 3.375 G in DEXTROSE 5% WATER 50 ML IV SCH ×3 (05:53→21:51)
[2021-11-03 06:31] LABS: BASOPHILS % 0.1 % (0.0-2.0); EOSINOPHILS % 0.1 % (0.0-5.0); HEMATOCRIT. 26.4 % (42.0-52.0); HEMOGLOBIN. 8.7 g/dL (14.0-18.0); LYMPHOCYTES % 10.2 % (20.0-50.0); MEAN CORPUSCULAR HEMOGLOBIN 23.3 pg (28.0-32.0); MEAN CORPUSCULAR VOLUME 70.7 fL (80.0-94.0); MEAN PLATELET VOLUME 6.6 fl (7.4-10.4); MONOCYTES % 8.2 % (2.0-8.0); NEUTROPHILS % 81.4 % (40.0-76.0); PLATELET 374 x1000/uL (130-400); RED BLOOD CELL COUNT 3.74 mill/uL (4.7-6.1); RED CELL DISTRIBUTION WIDTH 24.4 % (11.6-14.6)
[2021-11-03 06:59] LABS: CHLORIDE 108 mEq/L (98-107)
[2021-11-03 07:05] LABS: PHOSPHORUS 2.9 mg/dL (2.5-4.9)
[2021-11-03] MEDS: MULTIVITAMINS,THER W-MINERALS TABLET PO SCH (09:06)
[2021-11-03] MEDS: FOLIC ACID 1MG TABLET PO SCH (09:07)
[2021-11-03] MEDS: THIAMINE HCL 100MG TABLET PO SCH (09:07)
[2021-11-03] MEDS ORDERED: NALOXONE HCL 0.4MG/ML VIAL IV PRN (09:30)
[2021-11-03] MEDS ORDERED: POTASSIUM CHLORIDE INJ 40 MEQ in DEXT 5% WATER 500 ML IV ONE (09:30)
[2021-11-03] MEDS: ACETAMINOPHEN 325MG TABLET PO PRN (10:24)
[2021-11-03] MEDS ORDERED: MAGNESIUM 2 G PREMIX 50 ML IV NR (12:00)
[2021-11-03] MEDS ORDERED: POTASSIUM CHLORIDE INJ 40 MEQ in DEXT 5% WATER 250 ML IV ONE (15:00)
[2021-11-03] MEDS: HYDROMORPHONE HCL/PF 2MG/ML CPJ IM PRN (17:44)
[2021-11-03] MEDS: KCL 20MEQ/100ML X 2 FOR TOTAL KCL 40MEQ/200ML IV SCH ×2 (17:44→19:01)
[2021-11-03] MEDS: TOTAL PARENTERAL NUTRITION 1,100 ML IV SCH (19:06)
[2021-11-03] MEDS: MORPHINE SULFATE 30MG TABLET SR PO SCH (21:42)
[2021-11-04] VITALS (13 sets, daily range): BP systolic 106–133; BP diastolic 62–89
[2021-11-04] MEDS: HYDROMORPHONE HCL/PF 2MG/ML CPJ IM PRN ×3 (00:10→18:19)
[2021-11-04] MEDS ORDERED: POTASSIUM CHLORIDE INJ 40 MEQ in DEXT 5% WATER 250 ML IV ONE (00:45)
[2021-11-04] MEDS: KCL 20MEQ/100ML PREMIX 100 ML IV SCH ×2 (01:25→03:13)
[2021-11-04] MEDS: BLOOD SUGAR DIAGNOSTIC STRIP TEST SCH ×4 (06:00→18:15)
[2021-11-04] MEDS: ACETAMINOPHEN 325MG TABLET PO PRN ×2 (06:17→15:29)
[2021-11-04] MEDS: PIPERACILLIN/TAZOBACTAM 3.375 G in DEXTROSE 5% WATER 50 ML IV SCH ×3 (06:17→21:54)
[2021-11-04 06:40] LABS: BASOPHILS % 0.3 % (0.0-2.0); EOSINOPHILS % 0.3 % (0.0-5.0); LYMPHOCYTES % 8.5 % (20.0-50.0); MEAN CORPUSCULAR HEMOGLOBIN 22.6 pg (28.0-32.0); MEAN CORPUSCULAR VOLUME 73.5 fL (80.0-94.0); MONOCYTES % 10.7 % (2.0-8.0); NEUTROPHILS % 80.2 % (40.0-76.0); PLATELET 365 x1000/uL (130-400); RED BLOOD CELL COUNT 3.55 mill/uL (4.7-6.1); RED CELL DISTRIBUTION WIDTH 24.4 % (11.6-14.6)
[2021-11-04 06:54] LABS: CHLORIDE 109 mEq/L (98-107)
[2021-11-04] MEDS ORDERED: TOTAL PARENTERAL NUTRITION 1,100 ML IV SCH (08:12)
[2021-11-04] MEDS: MULTIVITAMINS,THER W-MINERALS TABLET PO SCH (09:02)
[2021-11-04] MEDS: THIAMINE HCL 100MG TABLET PO SCH (09:02)
[2021-11-04] MEDS: FOLIC ACID 1MG TABLET PO SCH (09:02)
[2021-11-04] MEDS: MORPHINE SULFATE 30MG TABLET SR PO SCH ×2 (09:03→21:49)
[2021-11-04] MEDS ORDERED: SODIUM CHLORIDE 0.9% 500 ML IV ONE (10:45)
[2021-11-04] MEDS: TOTAL PARENTERAL NUTRITION 1,100 ML IV SCH (18:15)
[2021-11-05] VITALS (12 sets, daily range): BP systolic 108–127; BP diastolic 60–84
[2021-11-05] MEDS: ACETAMINOPHEN 325MG TABLET PO PRN (00:22)
[2021-11-05] MEDS: HYDROMORPHONE HCL/PF 2MG/ML CPJ IM PRN ×3 (01:44→17:16)
[2021-11-05] MEDS: PIPERACILLIN/TAZOBACTAM 3.375 G in DEXTROSE 5% WATER 50 ML IV SCH ×3 (05:33→21:43)
[2021-11-05 06:56] LABS: BASOPHILS % 0.2 % (0.0-2.0); EOSINOPHILS % 0.3 % (0.0-5.0); HEMATOCRIT. 28.4 % (42.0-52.0); HEMOGLOBIN. 9.1 g/dL (14.0-18.0); MEAN CORPUSCULAR HEMOGLOBIN 23.2 pg (28.0-32.0); MEAN CORPUSCULAR VOLUME 72.3 fL (80.0-94.0); MEAN PLATELET VOLUME 6.9 fl (7.4-10.4); MONOCYTES % 8.9 % (2.0-8.0); NEUTROPHILS % 79.6 % (40.0-76.0); PLATELET 413 x1000/uL (130-400); RED BLOOD CELL COUNT 3.93 mill/uL (4.7-6.1); RED CELL DISTRIBUTION WIDTH 24.6 % (11.6-14.6)
[2021-11-05 07:02] LABS: CHLORIDE 105 mEq/L (98-107)
[2021-11-05] MEDS: MULTIVITAMINS,THER W-MINERALS TABLET PO SCH (09:11)
[2021-11-05] MEDS: FOLIC ACID 1MG TABLET PO SCH (09:12)
[2021-11-05] MEDS: THIAMINE HCL 100MG TABLET PO SCH (09:12)
[2021-11-05] MEDS: BLOOD SUGAR DIAGNOSTIC STRIP TEST SCH (09:38)
[2021-11-05] MEDS: MORPHINE SULFATE 30MG TABLET SR PO SCH ×2 (09:38→21:30)
[2021-11-05] MEDS: NYSTATIN 100,000 UNITS/ML 5ML UDC SSW SCH ×3 (11:27→23:53)
[2021-11-05] MEDS: METOCLOPRAMIDE 10MG/10 ML UDC PO SCH ×2 (17:25→21:43)
[2021-11-05 17:44] LABS: PLATELET ESTIMATE SLIGHTLY INCREASED
[2021-11-05] MEDS ORDERED: TOTAL PARENTERAL NUTRITION 1,400 ML IV SCH (21:00)
[2021-11-05] MEDS: METOPROLOL TARTRATE 25MG TABLET PO SCH (21:29)
[2021-11-06] VITALS (12 sets, daily range): BP systolic 105–124; BP diastolic 55–78
[2021-11-06] MEDS: HYDROMORPHONE HCL/PF 2MG/ML CPJ IM PRN ×3 (02:12→16:38)
[2021-11-06] MEDS ORDERED: PIPERACILLIN/TAZOBACTAM 3.375 G in DEXTROSE 5% WATER 50 ML IV SCH (06:00)
[2021-11-06] MEDS: NYSTATIN 100,000 UNITS/ML 5ML UDC SSW SCH ×3 (06:04→16:29)
[2021-11-06] MEDS: METOCLOPRAMIDE 10MG/10 ML UDC PO SCH ×3 (06:04→22:07)
[2021-11-06] MEDS: PIPERACILLIN/TAZOBACTAM 3.375 G in DEXTROSE 5% WATER 50 ML IV SCH ×3 (06:04→22:07)
[2021-11-06] MEDS: MULTIVITAMINS,THER W-MINERALS TABLET PO SCH (07:54)
[2021-11-06] MEDS: FOLIC ACID 1MG TABLET PO SCH (07:54)
[2021-11-06] MEDS: METOPROLOL TARTRATE 25MG TABLET PO SCH ×2 (07:54→21:06)
[2021-11-06] MEDS: PHYTONADIONE 10MG/ML AMP SUBCUT SCH (07:54)
[2021-11-06] MEDS: THIAMINE HCL 100MG TABLET PO SCH (07:55)
[2021-11-06] MEDS: BLOOD SUGAR DIAGNOSTIC STRIP TEST SCH (09:50)
[2021-11-06] MEDS: MORPHINE SULFATE 30MG TABLET SR PO SCH ×2 (11:00→21:06)
[2021-11-06] MEDS ORDERED: DIGOXIN 500MCG/2ML AMP IV NR (11:22)
[2021-11-06] MEDS ORDERED: HYDROMORPHONE HCL/PF 4MG/ML CPJ IV PRN (11:45)
[2021-11-06] MEDS ORDERED: HYDROMORPHONE HCL/PF 2MG/ML CPJ IV PRN (11:45)
[2021-11-06] MEDS ORDERED: GUAIFENESIN 600MG ER TABLET PO NR (12:00)
[2021-11-06] MEDS ORDERED: METO25TA6 MT (12:15)
[2021-11-06] MEDS ORDERED: MORP30TA54 MT (12:15)
[2021-11-06] MEDS ORDERED: HYDR4TAB4 MT (12:15)
[2021-11-06] MEDS ORDERED: GUAI600T44 PO (12:15)
[2021-11-06] MEDS ORDERED: HYDR4TAB56 MT (13:19)
[2021-11-06] MEDS ORDERED: HYDR-4009 MT (13:19)
[2021-11-06] MEDS: ACETAMINOPHEN 325MG TABLET PO PRN (17:38)
[2021-11-06] MEDS: FAT EMULSIONS 250 ML IV SCH ×2 (19:28→23:06)
[2021-11-06] MEDS ORDERED: TOTAL PARENTERAL NUTRITION 1,600 ML IV SCH (21:00)
[2021-11-06] MEDS: GUAIFENESIN 600MG ER TABLET PO SCH (21:05)
[2021-11-07] VITALS (19 sets, daily range): BP systolic 107–122; BP diastolic 66–84
[2021-11-07] MEDS: NYSTATIN 100,000 UNITS/ML 5ML UDC SSW SCH ×4 (00:05→18:14)
[2021-11-07] MEDS: HYDROMORPHONE HCL/PF 2MG/ML CPJ IM PRN ×2 (00:06→16:05)
[2021-11-07] MEDS: PIPERACILLIN/TAZOBACTAM 3.375 G in DEXTROSE 5% WATER 50 ML IV SCH ×3 (06:15→21:36)
[2021-11-07] MEDS: METOCLOPRAMIDE 10MG/10 ML UDC PO SCH ×3 (06:15→21:37)
[2021-11-07 07:22] LABS: BASOPHILS % 0.4 % (0.0-2.0); EOSINOPHILS % 0.7 % (0.0-5.0); LYMPHOCYTES % 9.9 % (20.0-50.0); MEAN CORPUSCULAR HEMOGLOBIN 23.8 pg (28.0-32.0); MEAN CORPUSCULAR VOLUME 73.1 fL (80.0-94.0); MONOCYTES % 7.7 % (2.0-8.0); NEUTROPHILS % 81.3 % (40.0-76.0); PLATELET 497 x1000/uL (130-400); RED BLOOD CELL COUNT 2.88 mill/uL (4.7-6.1)
[2021-11-07 07:38] LABS: CHLORIDE 101 mEq/L (98-107)
[2021-11-07 08:17] LABS: HEMOGLOBIN. 6.8 g/dL (14.0-18.0)
[2021-11-07] MEDS: ACETAMINOPHEN 325MG TABLET PO PRN (08:29)
[2021-11-07] MEDS: MULTIVITAMINS,THER W-MINERALS TABLET PO SCH (08:29)
[2021-11-07] MEDS: METOPROLOL TARTRATE 25MG TABLET PO SCH ×2 (08:30→21:35)
[2021-11-07] MEDS: MORPHINE SULFATE 30MG TABLET SR PO SCH ×2 (08:34→21:34)
[2021-11-07] MEDS: GUAIFENESIN 600MG ER TABLET PO SCH ×2 (08:36→21:33)
[2021-11-07] MEDS: THIAMINE HCL 100MG TABLET PO SCH (08:36)
[2021-11-07] MEDS: BLOOD SUGAR DIAGNOSTIC STRIP TEST SCH (09:42)
[2021-11-07 17:30] LABS: HEMATOCRIT 23.6 % (42.0-52.0); HEMOGLOBIN 7.6 g/dL (14.0-18.0)
[2021-11-07] MEDS: TOTAL PARENTERAL NUTRITION 1,800 ML IV SCH (21:36)
[2021-11-08] VITALS (12 sets, daily range): BP systolic 105–119; BP diastolic 57–78
[2021-11-08] MEDS: NYSTATIN 100,000 UNITS/ML 5ML UDC SSW SCH ×4 (00:10→18:00)
[2021-11-08] MEDS: HYDROMORPHONE HCL/PF 2MG/ML CPJ IM PRN (02:16)
[2021-11-08] MEDS: METOCLOPRAMIDE 10MG/10 ML UDC PO SCH ×3 (06:05→22:14)
[2021-11-08] MEDS: PIPERACILLIN/TAZOBACTAM 3.375 G in DEXTROSE 5% WATER 50 ML IV SCH ×3 (06:05→21:47)
[2021-11-08 09:33] LABS: BASOPHILS % 0.2 % (0.0-2.0); EOSINOPHILS % 0.6 % (0.0-5.0); HEMATOCRIT. 24.3 % (42.0-52.0); HEMOGLOBIN. 7.7 g/dL (14.0-18.0); LYMPHOCYTES % 8.8 % (20.0-50.0); MEAN CORPUSCULAR HEMOGLOBIN 23.2 pg (28.0-32.0); MEAN CORPUSCULAR VOLUME 73.5 fL (80.0-94.0); MEAN PLATELET VOLUME 7.7 fl (7.4-10.4); MONOCYTES % 11.2 % (2.0-8.0); NEUTROPHILS % 79.2 % (40.0-76.0); PLATELET 497 x1000/uL (130-400); RED CELL DISTRIBUTION WIDTH 23.8 % (11.6-14.6)
[2021-11-08] MEDS: MULTIVITAMINS,THER W-MINERALS TABLET PO SCH (09:35)
[2021-11-08] MEDS: THIAMINE HCL 100MG TABLET PO SCH (09:35)
[2021-11-08] MEDS: GUAIFENESIN 600MG ER TABLET PO SCH ×2 (09:35→20:08)
[2021-11-08] MEDS: METOPROLOL TARTRATE 25MG TABLET PO SCH ×2 (09:35→20:08)
[2021-11-08] MEDS: MORPHINE SULFATE 30MG TABLET SR PO SCH ×2 (09:36→21:45)
[2021-11-08] MEDS: BLOOD SUGAR DIAGNOSTIC STRIP TEST SCH (09:37)
[2021-11-08 09:43] LABS: CHLORIDE 103 mEq/L (98-107)
[2021-11-08] MEDS ORDERED: DILTIAZEM HCL 5MG/ML 5ML VIAL IV NR (10:56)
[2021-11-08] MEDS ORDERED: DIGOXIN 500MCG/2ML AMP IV NR (14:30)
[2021-11-08] MEDS: ACETAMINOPHEN 325MG TABLET PO PRN (20:08)
[2021-11-08] MEDS: TOTAL PARENTERAL NUTRITION 1,800 ML IV SCH (22:28)
[2021-11-09] VITALS (8 sets, daily range): BP systolic 111–127; BP diastolic 73–93
[2021-11-09] MEDS: NYSTATIN 100,000 UNITS/ML 5ML UDC SSW SCH ×4 (01:22→18:00)
[2021-11-09] MEDS: PIPERACILLIN/TAZOBACTAM 3.375 G in DEXTROSE 5% WATER 50 ML IV SCH ×3 (05:09→21:58)
[2021-11-09] MEDS: METOCLOPRAMIDE 10MG/10 ML UDC PO SCH ×3 (05:09→22:00)
[2021-11-09] MEDS: HYDROMORPHONE HCL/PF 2MG/ML CPJ IV PRN ×3 (06:51→22:43)
[2021-11-09 07:04] LABS: CHLORIDE 104 mEq/L (98-107)
[2021-11-09 07:16] LABS: BASOPHILS % 0.4 % (0.0-2.0); EOSINOPHILS % 0.9 % (0.0-5.0); HEMATOCRIT. 24.5 % (42.0-52.0); HEMOGLOBIN. 7.8 g/dL (14.0-18.0); LYMPHOCYTES % 9.6 % (20.0-50.0); MEAN CORPUSCULAR VOLUME 75.3 fL (80.0-94.0); MEAN PLATELET VOLUME 7.5 fl (7.4-10.4); MONOCYTES % 12.5 % (2.0-8.0); NEUTROPHILS % 76.6 % (40.0-76.0); PLATELET 547 x1000/uL (130-400); RED BLOOD CELL COUNT 3.25 mill/uL (4.7-6.1); RED CELL DISTRIBUTION WIDTH 24.4 % (11.6-14.6)
[2021-11-09] MEDS: BLOOD SUGAR DIAGNOSTIC STRIP TEST SCH (09:00)
[2021-11-09] MEDS: THIAMINE HCL 100MG TABLET PO SCH (09:10)
[2021-11-09] MEDS: GUAIFENESIN 600MG ER TABLET PO SCH ×2 (09:10→22:00)
[2021-11-09] MEDS: METOPROLOL TARTRATE 25MG TABLET PO SCH ×2 (09:10→22:00)
[2021-11-09] MEDS: MULTIVITAMINS,THER W-MINERALS TABLET PO SCH (09:10)
[2021-11-09] MEDS ORDERED: DILTIAZEM HCL 5MG/ML 5ML VIAL IV SCH (11:00)
[2021-11-09] MEDS ORDERED: DIGOXIN 500MCG/2ML AMP IV SCH (11:00)
[2021-11-09] MEDS: TOTAL PARENTERAL NUTRITION 1,800 ML IV SCH (21:59)
[2021-11-10] VITALS (8 sets, daily range): BP systolic 107–122; BP diastolic 69–83
[2021-11-10] MEDS: HYDROMORPHONE HCL/PF 2MG/ML CPJ IV PRN ×3 (03:58→23:45)
[2021-11-10] MEDS: METOCLOPRAMIDE 10MG/10 ML UDC PO SCH ×3 (05:39→22:07)
[2021-11-10] MEDS: NYSTATIN 100,000 UNITS/ML 5ML UDC SSW SCH ×3 (05:39→11:58)
[2021-11-10] MEDS: PIPERACILLIN/TAZOBACTAM 3.375 G in DEXTROSE 5% WATER 50 ML IV SCH ×3 (05:40→22:07)
[2021-11-10] MEDS: THIAMINE HCL 100MG TABLET PO SCH (08:52)
[2021-11-10] MEDS: GUAIFENESIN 600MG ER TABLET PO SCH ×2 (08:53→22:07)
[2021-11-10] MEDS: BLOOD SUGAR DIAGNOSTIC STRIP TEST SCH (08:53)
[2021-11-10] MEDS: METOPROLOL TARTRATE 25MG TABLET PO SCH ×2 (08:53→22:07)
[2021-11-10] MEDS: MULTIVITAMINS,THER W-MINERALS TABLET PO SCH (08:53)
[2021-11-10] MEDS ORDERED: HYDROCODONE/ACETAMINOPHEN 10/325MG TABLET PO PRN (13:45)
[2021-11-10] MEDS ORDERED: NALOXONE HCL 0.4MG/ML VIAL IV PRN (14:00)
[2021-11-10] MEDS: TOTAL PARENTERAL NUTRITION 1,800 ML IV SCH (22:13)
[2021-11-11 00:01] VITALS: BP 125/85
[2021-11-11 04:12] VITALS: BP 111/77
[2021-11-11] MEDS: METOCLOPRAMIDE 10MG/10 ML UDC PO SCH ×3 (05:36→22:28)
[2021-11-11] MEDS: PIPERACILLIN/TAZOBACTAM 3.375 G in DEXTROSE 5% WATER 50 ML IV SCH ×3 (05:36→22:29)
[2021-11-11 08:00] VITALS: BP 127/89
[2021-11-11] MEDS: BLOOD SUGAR DIAGNOSTIC STRIP TEST SCH (09:00)
[2021-11-11] MEDS: MULTIVITAMINS,THER W-MINERALS TABLET PO SCH (09:00)
[2021-11-11] MEDS: GUAIFENESIN 600MG ER TABLET PO SCH ×2 (10:06→22:28)
[2021-11-11] MEDS: THIAMINE HCL 100MG TABLET PO SCH (10:06)
[2021-11-11] MEDS: METOPROLOL TARTRATE 25MG TABLET PO SCH ×2 (10:06→22:28)
[2021-11-11] MEDS: HYDROMORPHONE HCL/PF 2MG/ML CPJ IV PRN ×2 (11:17→15:05)
[2021-11-11 12:00] VITALS: BP 117/79
[2021-11-11 16:00] VITALS: BP 111/81
[2021-11-11 20:00] VITALS: BP 122/83
[2021-11-11] MEDS: TOTAL PARENTERAL NUTRITION 1,800 ML IV SCH (23:12)
[2021-11-12] VITALS: BP 120/88
[2021-11-12] MEDS: HYDROMORPHONE HCL/PF 2MG/ML CPJ IV PRN ×4 (00:27→16:05)
[2021-11-12 04:00] VITALS: BP 123/84
[2021-11-12] MEDS: METOCLOPRAMIDE 10MG/10 ML UDC PO SCH ×3 (06:17→21:45)
[2021-11-12 08:00] VITALS: BP 132/88
[2021-11-12] MEDS: METOPROLOL TARTRATE 25MG TABLET PO SCH ×2 (09:11→21:46)
[2021-11-12] MEDS: THIAMINE HCL 100MG TABLET PO SCH (09:11)
[2021-11-12] MEDS: BLOOD SUGAR DIAGNOSTIC STRIP TEST SCH (09:11)
[2021-11-12] MEDS: GUAIFENESIN 600MG ER TABLET PO SCH ×2 (09:11→21:45)
[2021-11-12] MEDS: MULTIVITAMINS,THER W-MINERALS TABLET PO SCH (10:32)
[2021-11-12 12:00] VITALS: BP 127/95
[2021-11-12 16:00] VITALS: BP 113/78
[2021-11-12 20:00] VITALS: BP 107/79
[2021-11-12] MEDS: TOTAL PARENTERAL NUTRITION 1,800 ML IV SCH (21:45)
[2021-11-13] VITALS (7 sets, daily range): BP systolic 108–139; BP diastolic 73–81
[2021-11-13] MEDS: METOCLOPRAMIDE 10MG/10 ML UDC PO SCH ×3 (05:43→22:24)
[2021-11-13] MEDS: METOPROLOL TARTRATE 25MG TABLET PO SCH ×2 (08:25→22:40)
[2021-11-13] MEDS: MULTIVITAMINS,THER W-MINERALS TABLET PO SCH (08:25)
[2021-11-13] MEDS: THIAMINE HCL 100MG TABLET PO SCH (08:25)
[2021-11-13] MEDS: GUAIFENESIN 600MG ER TABLET PO SCH ×2 (08:25→22:23)
[2021-11-13] MEDS: HYDROMORPHONE HCL/PF 2MG/ML CPJ IV PRN ×3 (08:25→22:48)
[2021-11-13] MEDS: BLOOD SUGAR DIAGNOSTIC STRIP TEST SCH (08:25)
[2021-11-13] MEDS ORDERED: PHYTONADIONE 10MG/ML AMP ONE (08:29)
[2021-11-13] MEDS: PHYTONADIONE 10MG/ML AMP SUBCUT SCH (08:30)
[2021-11-13] MEDS: TOTAL PARENTERAL NUTRITION 1,800 ML IV SCH (22:40)
[2021-11-14] VITALS: BP 103/70
[2021-11-14 04:00] VITALS: BP 109/74
[2021-11-14] MEDS: METOCLOPRAMIDE 10MG/10 ML UDC PO SCH ×3 (05:15→22:49)
[2021-11-14] MEDS: HYDROMORPHONE HCL/PF 2MG/ML CPJ IV PRN ×6 (05:15→22:58)
[2021-11-14 08:00] VITALS: BP 117/81
[2021-11-14] MEDS: MULTIVITAMINS,THER W-MINERALS TABLET PO SCH (09:00)
[2021-11-14] MEDS: GUAIFENESIN 600MG ER TABLET PO SCH ×2 (09:24→20:53)
[2021-11-14] MEDS: THIAMINE HCL 100MG TABLET PO SCH (09:24)
[2021-11-14] MEDS: METOPROLOL TARTRATE 25MG TABLET PO SCH ×2 (09:25→20:53)
[2021-11-14 12:00] VITALS: BP 97/67
[2021-11-14 16:00] VITALS: BP 102/75
[2021-11-14] MEDS: CEFEPIME 1,000 MG in DEXTROSE 5% WATER 50 ML IV SCH (16:06)
[2021-11-14 20:00] VITALS: BP 109/65
[2021-11-14] MEDS: TOTAL PARENTERAL NUTRITION 1,800 ML IV SCH (21:04)
[2021-11-15] VITALS: BP 100/61
[2021-11-15] MEDS: HYDROMORPHONE HCL/PF 2MG/ML CPJ IV PRN ×9 (02:19→22:54)
[2021-11-15] MEDS: CEFEPIME 1,000 MG in DEXTROSE 5% WATER 50 ML IV SCH ×2 (02:26→16:46)
[2021-11-15 04:00] VITALS: BP 120/72
[2021-11-15] MEDS: ACETAMINOPHEN 325MG TABLET PO PRN (04:56)
[2021-11-15] MEDS: METOCLOPRAMIDE 10MG/10 ML UDC PO SCH ×3 (05:00→22:50)
[2021-11-15 06:28] LABS: BASOPHILS % 0.2 % (0.0-2.0); EOSINOPHILS % 0.2 % (0.0-5.0); HEMATOCRIT. 23.1 % (42.0-52.0); HEMOGLOBIN. 7.1 g/dL (14.0-18.0); LYMPHOCYTES % 7.5 % (20.0-50.0); MEAN CORPUSCULAR VOLUME 74.9 fL (80.0-94.0); MEAN PLATELET VOLUME 7.1 fl (7.4-10.4); MONOCYTES % 8.6 % (2.0-8.0); NEUTROPHILS % 83.5 % (40.0-76.0); PLATELET 470 x1000/uL (130-400); RED BLOOD CELL COUNT 3.09 mill/uL (4.7-6.1); RED CELL DISTRIBUTION WIDTH 25.5 % (11.6-14.6)
[2021-11-15 06:56] LABS: PHOSPHORUS 3.7 mg/dL (2.5-4.9)
[2021-11-15] MEDS ORDERED: POTASSIUM CHLORIDE INJ 40 MEQ in DEXT 5% WATER 250 ML IV ONE (07:30)
[2021-11-15 08:00] VITALS: BP 98/60
[2021-11-15] MEDS: METOPROLOL TARTRATE 25MG TABLET PO SCH ×2 (09:00→20:32)
[2021-11-15] MEDS: MULTIVITAMINS,THER W-MINERALS TABLET PO SCH (09:00)
[2021-11-15] MEDS: GUAIFENESIN 600MG ER TABLET PO SCH ×2 (09:07→20:32)
[2021-11-15] MEDS: THIAMINE HCL 100MG TABLET PO SCH (09:07)
[2021-11-15] MEDS: KCL 20MEQ/100ML X 2 FOR TOTAL KCL 40MEQ/200ML IV SCH ×2 (09:29→14:23)
[2021-11-15 12:00] VITALS: BP 107/67
[2021-11-15 14:13] LABS: PLATELET ESTIMATE INCREASED
[2021-11-15 16:00] VITALS: BP 103/65
[2021-11-15 20:00] VITALS: BP 105/68
[2021-11-15] MEDS: ONDANSETRON HCL 4MG/2ML INJ IV PRN (20:31)
[2021-11-15] MEDS: TOTAL PARENTERAL NUTRITION 1,800 ML IV SCH (21:09)
[2021-11-16] VITALS (7 sets, daily range): BP systolic 97–112; BP diastolic 56–72
[2021-11-16] MEDS: CEFEPIME 1,000 MG in DEXTROSE 5% WATER 50 ML IV SCH ×2 (02:10→13:28)
[2021-11-16] MEDS: HYDROMORPHONE HCL/PF 2MG/ML CPJ IV PRN ×8 (02:17→22:57)
[2021-11-16] MEDS: METOCLOPRAMIDE 10MG/10 ML UDC PO SCH ×3 (06:29→20:21)
[2021-11-16 06:43] LABS: HEMATOCRIT. 25.4 % (42.0-52.0); HEMOGLOBIN. 7.9 g/dL (14.0-18.0); MEAN CORPUSCULAR HEMOGLOBIN 23.1 pg (28.0-32.0); MEAN CORPUSCULAR VOLUME 74.1 fL (80.0-94.0); MEAN PLATELET VOLUME 6.9 fl (7.4-10.4); PLATELET 432 x1000/uL (130-400); RED BLOOD CELL COUNT 3.43 mill/uL (4.7-6.1); RED CELL DISTRIBUTION WIDTH 25.7 % (11.6-14.6)
[2021-11-16 07:27] LABS: PHOSPHORUS 3.5 mg/dL (2.5-4.9)
[2021-11-16] MEDS: METOPROLOL TARTRATE 25MG TABLET PO SCH ×2 (08:33→20:04)
[2021-11-16 08:39] LABS: CLARITY URINE CLEAR (CLEAR); COLOR URINE YELLOW (YELLOW); KETONES URINE NEGATIVE (NEGATIVE); LEUKOCYTE ESTERASE URINE 2+ (NEGATIVE); NITRITE URINE NEGATIVE (NEGATIVE); OCCULT BLOOD URINE 1+ (NEGATIVE); PH URINE 5.5 (4.5-8.0); PROTEIN URINE 1+ (NEGATIVE); SPECIFIC GRAVITY URINE 1.013 (1.005-1.030); UROBILINOGEN URINE 0.2 E.U./dL (0.2-1.0)
[2021-11-16] MEDS: THIAMINE HCL 100MG TABLET PO SCH (08:48)
[2021-11-16] MEDS: GUAIFENESIN 600MG ER TABLET PO SCH ×2 (08:48→20:21)
[2021-11-16] MEDS: MULTIVITAMINS,THER W-MINERALS TABLET PO SCH (08:49)
[2021-11-16 10:15] LABS: PLATELET ESTIMATE SLIGHTLY INCREASED
[2021-11-16] MEDS ORDERED: POTASSIUM CHLORIDE INJ 40 MEQ in DEXT 5% WATER 250 ML IV ONE (10:15)
[2021-11-16] MEDS: KCL 20MEQ/100ML X 2 FOR TOTAL KCL 40MEQ/200ML IV SCH ×2 (12:01→13:28)
[2021-11-16] MEDS ORDERED: DIGOXIN 500MCG/2ML AMP IV NR (20:00)
[2021-11-16] MEDS: TOTAL PARENTERAL NUTRITION 1,800 ML IV SCH (20:13)
[2021-11-16] MEDS: FAT EMULSIONS 250 ML IV SCH ×2 (20:13→22:59)
[2021-11-17] VITALS: BP_SYST 107; BP_SYST 144; BP_DIAS 67; BP_DIAS 70
[2021-11-17] MEDS: HYDROMORPHONE HCL/PF 2MG/ML CPJ IV PRN ×6 (01:37→20:58)
[2021-11-17] MEDS: CEFEPIME 1,000 MG in DEXTROSE 5% WATER 50 ML IV SCH ×2 (01:37→14:23)
[2021-11-17 04:00] VITALS: BP 113/70
[2021-11-17] MEDS: METOCLOPRAMIDE 10MG/10 ML UDC PO SCH ×3 (05:47→22:00)
[2021-11-17 06:36] LABS: HEMATOCRIT. 24.8 % (42.0-52.0); MEAN CORPUSCULAR HEMOGLOBIN 24.6 pg (28.0-32.0); MEAN CORPUSCULAR VOLUME 76.2 fL (80.0-94.0); MEAN PLATELET VOLUME 7.3 fl (7.4-10.4); PLATELET 437 x1000/uL (130-400); RED BLOOD CELL COUNT 3.25 mill/uL (4.7-6.1); RED CELL DISTRIBUTION WIDTH 26.1 % (11.6-14.6)
[2021-11-17 07:02] LABS: PHOSPHORUS 2.4 mg/dL (2.5-4.9)
[2021-11-17 08:19] VITALS: BP 101/66
[2021-11-17] MEDS: METOPROLOL TARTRATE 25MG TABLET PO SCH ×2 (09:00→21:00)
[2021-11-17] MEDS: THIAMINE HCL 100MG TABLET PO SCH (09:06)
[2021-11-17] MEDS: MULTIVITAMINS,THER W-MINERALS TABLET PO SCH (09:06)
[2021-11-17] MEDS: GUAIFENESIN 600MG ER TABLET PO SCH ×2 (09:06→20:58)
[2021-11-17] MEDS ORDERED: SODIUM BICARBONATE 8.4% 1 MEQ/ML 50ML SYR IV NR (10:30)
[2021-11-17] MEDS ORDERED: DIGOXIN 500MCG/2ML AMP IV SCH (11:00)
[2021-11-17 12:00] VITALS: BP 103/67
[2021-11-17] MEDS ORDERED: LORAZEPAM 2MG/ML CPJ IV PRN (12:00)
[2021-11-17] MEDS: KCL 20MEQ/100ML PREMIX 100 ML IV SCH ×2 (12:58→14:23)
[2021-11-17 16:00] VITALS: BP 109/74
[2021-11-17 20:00] VITALS: BP 105/69
[2021-11-17] MEDS: TOTAL PARENTERAL NUTRITION 1,800 ML IV SCH (21:06)
[2021-11-17 22:17] LABS: PLATELET ESTIMATE SLIGHTLY INCREASED
[2021-11-18] VITALS: BP 113/79
[2021-11-18] MEDS: HYDROMORPHONE HCL/PF 2MG/ML CPJ IV PRN ×6 (00:35→20:51)
[2021-11-18] MEDS: CEFEPIME 1,000 MG in DEXTROSE 5% WATER 50 ML IV SCH ×2 (02:24→13:28)
[2021-11-18 04:00] VITALS: BP 112/74
[2021-11-18] MEDS: METOCLOPRAMIDE 10MG/10 ML UDC PO SCH ×3 (05:16→20:42)
[2021-11-18 07:41] LABS: BASOPHILS % 0.1 % (0.0-2.0); EOSINOPHILS % 0.3 % (0.0-5.0); HEMATOCRIT. 30.4 % (42.0-52.0); MEAN CORPUSCULAR HEMOGLOBIN 23.6 pg (28.0-32.0); MEAN CORPUSCULAR VOLUME 77.1 fL (80.0-94.0); MEAN PLATELET VOLUME 7.4 fl (7.4-10.4); MONOCYTES % 7.4 % (2.0-8.0); NEUTROPHILS % 83.2 % (40.0-76.0); PLATELET 479 x1000/uL (130-400); RED BLOOD CELL COUNT 3.95 mill/uL (4.7-6.1); RED CELL DISTRIBUTION WIDTH 26.2 % (11.6-14.6)
[2021-11-18 08:00] VITALS: BP 110/74
[2021-11-18 08:04] LABS: HEMOGLOBIN. 9.3 g/dL (14.0-18.0)
[2021-11-18] MEDS: METOPROLOL TARTRATE 25MG TABLET PO SCH ×2 (08:50→20:26)
[2021-11-18] MEDS: THIAMINE HCL 100MG TABLET PO SCH (08:50)
[2021-11-18] MEDS: GUAIFENESIN 600MG ER TABLET PO SCH ×2 (08:51→20:42)
[2021-11-18] MEDS: MULTIVITAMINS,THER W-MINERALS TABLET PO SCH (08:51)
[2021-11-18 12:00] VITALS: BP 107/71
[2021-11-18 16:00] VITALS: BP 106/70
[2021-11-18] MEDS ORDERED: DIGOXIN 500MCG/2ML AMP IV NR (18:51)
[2021-11-18 20:00] VITALS: BP 100/68
[2021-11-18] MEDS ORDERED: TOTAL PARENTERAL NUTRITION 1,800 ML IV SCH (21:00)
[2021-11-19] VITALS: BP 104/68
[2021-11-19] MEDS: CEFEPIME 1,000 MG in DEXTROSE 5% WATER 50 ML IV SCH ×2 (02:42→14:06)
[2021-11-19] MEDS: HYDROMORPHONE HCL/PF 2MG/ML CPJ IV PRN ×3 (02:42→12:49)
[2021-11-19 04:00] VITALS: BP 110/75
[2021-11-19] MEDS: METOCLOPRAMIDE 10MG/10 ML UDC PO SCH ×2 (05:05→14:00)
[2021-11-19 07:27] LABS: CHLORIDE 136 mEq/L (98-107)
[2021-11-19 08:00] VITALS: BP 98/65
[2021-11-19] MEDS: METOPROLOL TARTRATE 25MG TABLET PO SCH (09:00)
[2021-11-19] MEDS: THIAMINE HCL 100MG TABLET PO SCH ×2 (09:00→09:14)
[2021-11-19] MEDS: GUAIFENESIN 600MG ER TABLET PO SCH ×2 (09:00→09:14)
[2021-11-19] MEDS: MULTIVITAMINS,THER W-MINERALS TABLET PO SCH ×2 (09:00→09:14)
[2021-11-19 10:58] LABS: BASOPHILS % 0.1 % (0.0-2.0); EOSINOPHILS % 0.1 % (0.0-5.0); HEMATOCRIT. 28.5 % (42.0-52.0); HEMOGLOBIN. 8.6 g/dL (14.0-18.0); LYMPHOCYTES % 9.7 % (20.0-50.0); MEAN CORPUSCULAR HEMOGLOBIN 22.9 pg (28.0-32.0); MEAN PLATELET VOLUME 7.8 fl (7.4-10.4); MONOCYTES % 7.8 % (2.0-8.0); NEUTROPHILS % 82.3 % (40.0-76.0); PLATELET 465 x1000/uL (130-400); RED BLOOD CELL COUNT 3.75 mill/uL (4.7-6.1); RED CELL DISTRIBUTION WIDTH 26.1 % (11.6-14.6)
[2021-11-19] MEDS ORDERED: DEXTROSE 5% WATER 1,000 ML IV SCH (11:00)
[2021-11-19 12:00] VITALS: BP 104/64
[2021-11-19 16:00] VITALS: BP 85/49
[2021-11-19] MEDS ORDERED: DIGOXIN 500MCG/2ML AMP IV SCH (18:00)
== END 2021-11-19 20:45 | DRG 871 ==
LOC: ER 16:10 → CVICU 20:46 → EDBEDREQ 20:48 → EDBEDREQTM 20:48 → EDBEDREQSVC 23:24 → EDBEDREQTM 23:24 → EDBEDREQ 23:24 → ENRESERV 10-28 04:21 → CANRESERV 10-28 04:21 → ENRESERV 10-28 07:48 → 3WST 10-30 18:00 → 8WST 11-09 23:38
PROVIDERS: ADMIT Internal Medicine; ATTEND Internal Medicine
PROC: 02H633Z Insertion of Infusion Device into Right Atrium, Percutaneous Approach (ICD-10-PCS; 2021-10-28)
PROC: B548ZZA Ultrasonography of Superior Vena Cava, Guidance (ICD-10-PCS; 2021-10-28)
PROC: 30233N1 Transfusion of Nonautologous Red Blood Cells into Peripheral Vein, Percutaneous Approach (ICD-10-PCS; principal; 2021-10-30)
DX: A41.9 Sepsis, unspecified organism (principal); R65.21 Severe sepsis with septic shock; E43 Unspecified severe protein-calorie malnutrition; E87.1 Hypo-osmolality and hyponatremia; C18.9 Malignant neoplasm of colon, unspecified; C78.00 Secondary malignant neoplasm of unspecified lung; C78.7 Secondary malignant neoplasm of liver and intrahepatic bile duct; N39.0 Urinary tract infection, site not specified; Z66 Do not resuscitate; E87.6 Hypokalemia; E87.8 Other disorders of electrolyte and fluid balance, not elsewhere classified; Z20.822 Contact with and (suspected) exposure to COVID-19; I10 Essential (primary) hypertension; D50.9 Iron deficiency anemia, unspecified; K57.90 Diverticulosis of intestine, part unspecified, without perforation or abscess without bleeding; Z90.49 Acquired absence of other specified parts of digestive tract; Z68.24 Body mass index [BMI] 24.0-24.9, adult
CPT/HCPCS: 36415; 71045; 71275; 74177; 76937; 80048; 80053; 80076; 80162; 81003; 82040; 82728; 82962; 83605; 83735; 83880; 84100; 84132; 84134; 84145; 84478; 84484; 85014; 85018; 85025; 85049; 86850; 86900; 86920; 87077; 87186; 87426; 93005; 93970; 97162; 97166; 99291; A6261; C1725; C1887; J0692; J1160; J1170; J1885; J2270; J2370; J2405; J2543; J3430; J3475; J3480; J3490; J7030; J7040; J7042; J7060; J7070; J8597; P9016; Q9967